=== PATIENT | male | born 1980 | race Caucasian/White ===

== ENCOUNTER 2019-10-04 12:00 | Emergency (ER) | payer SELFPAY ==
[~2019-10-04] VITALS: Ht 175.3 cm; Wt 59.0 kg
--- NOTE | 2019-10-04 12:03 | NUR ---
PT TO ROOM 39 PER [facility]. PT AMBULATING IN ROOM DRINKING SIPS OF BOTTLED WATER, THEN SPITTING INTO A VOMIT BAG. PT IS A/O X3. PT FOLLOWS COMMANDS APPROPRIATELY, AND IS VERY POLITE. PER PT: "I'M A HEAVY DRINKER, AND I HAVEN'T HAD ANYTHING TO DRINK IN OVER 24 HOURS. NOW I STARTED VOMITING AND I CAN'T KEEP ANYTHING DOWN, AND THE W/DRAWLS ARE TERRIBLE. I DO NOT WANT TO STOP DRINKING, AND I'M LEAVING FOR [place] TOMORROW BY [place], SO I JUST NEED SOME HELP TO GET THROUGH THIS. I HAVE HAD THIS HAPPEN BEFORE, AND AT ONE TIME THEY THOUGHT I HAD A SEIZURE, BUT I'M NOT SURE. MY BLOOD PRESSURE HAS BEEN RUNNING HIGHER THAT IT SHOULD, BUT I DON'T TAKE ANY MEDICATIONS." FULL ASSESSMENT PERFORMED BY RN, PA STUDENT AT BEDSIDE ASKING QUESTIONS. PT PLACED ON MONITOR, IN GOWN, WARM BLANKETS GIVEN AND CALL LIGHT WITH INSTRUCTIONS. PT REMAINS SITTING ON BED WITH EPIGASTRIC ABDOMINAL PAIN DESCRIBED CRAMPY WHEN VOMITING, AND MINOR TREMORS IN HANDS. BILATERAL HANDS ARE COOL TO TOUCH, BUT PATIENT IS HOLDING A COLD BOTTLE OF WATER. REPORT TO RN TAKING OVER HIS CARE.
[2019-10-04] MEDS ORDERED: SODIUM CHLORIDE FLUSH 10ML SYR IVF ONE (12:30)
[2019-10-04] MEDS ORDERED: SODIUM CHLORIDE 0.9% 1,000ML IVBOLUS ONE (12:30)
[2019-10-04] MEDS ORDERED: THIAMINE 100MG TABLET PO ONE (12:30)
[2019-10-04] MEDS ORDERED: PLEASE ENTER ALLERGIES MC SCH (12:30)
[2019-10-04] MEDS ORDERED: ONDANSETRON 2MG/ML, 2ML IVPush ONE (12:30)
[2019-10-04] MEDS ORDERED: LORazepam 2 MG/ML, 1ML IVPush ONE (12:30)
[2019-10-04 12:37] LABS: ANION GAP 18 mmol/L (5-15); CALCIUM 9.2 mg/dL (8.5-10.1); CHLORIDE 98 mmol/L (98-107); CREATININE 0.94 mg/dL (0.7-1.3)
[2019-10-04 12:38] LABS: ALBUMIN 3.9 g/dL (3.4-5.0)
[2019-10-04 12:41] LABS: BASOPHILS # (AUTO) 0.01 x10^3/uL (0-0.1); BASOPHILS % (AUTO) 0 % (0-1); EOSINOPHILS % (AUTO) 0 % (1-7); LYMPHOCYTES # (AUTO) 0.44 x10^3/uL (1-3.4); LYMPHOCYTES % (AUTO) 4 % (22-44); MD SCAN; MEAN CORPUSCULAR HEMOGLOBIN 34.4 pg (27.5-34.5); MEAN CORPUSCULAR HGB CONC 33.9 g/dL (33.2-36.2); MEAN CORPUSCULAR VOLUME 101.5 fL (81-97); MEAN PLATELET VOLUME 8.1 fL (7.4-10.4); MONOCYTES # (AUTO) 0.87 x10^3/uL (0.2-0.8); MONOCYTES % (AUTO) 7 % (2-9); NEUTROPHILS # (AUTO) 11.19 x10^3/uL (1.8-6.8); NEUTROPHILS % (AUTO) 89 % (42-75); PLATELET COUNT 92 x10^3/uL (130-400); RED CELL DISTRIBUTION WIDTH 13.8 % (9.4-14.8)
[2019-10-04] MEDS ORDERED: LORazepam 2 MG/ML, 1ML ONE (12:45)
[2019-10-04] MEDS ORDERED: ONDANSETRON 2MG/ML, 2ML ONE (12:45)
[2019-10-04] MEDS ORDERED: POTASSIUM CHLORIDE 20 MEQ TAB.ER.PRT ONE (13:26)
--- NOTE | 2019-10-04 13:29 | NUR ---
PT MEDICATED PER [facility]
[2019-10-04] MEDS ORDERED: POTASSIUM CHLORIDE 20 MEQ TAB.ER.PRT PO ONE (13:30)
[2019-10-04 14:05] VITALS: BP 141/89
--- NOTE | 2019-10-04 14:06 | NUR ---
PT UP FOR RECHECK. RESTING IN [facility]. SAYS "I FEEL MUCH BETTER"
== END 2019-10-04 14:41 | disposition home or self-care (01) ==
LOC: ED 12:30
DX: F10.229 Alcohol dependence with intoxication, unspecified (principal); R11.2 Nausea with vomiting, unspecified; Z87.891 Personal history of nicotine dependence; Y90.9 Presence of alcohol in blood, level not specified
CPT/HCPCS: 36415; 80048; 82040; 85025; 96361; 96374; 96375; 99284; J2060; J2405; J7030